=== PATIENT | male | born 1965 | race Caucasian/White ===

== ENCOUNTER 2019-09-26 18:42 | Emergency (ER) | payer OTHER, SELFPAY ==
[2019-09-26] VITALS (10 sets, daily range): BP systolic 112–176; BP diastolic 73–101; PULSE 77–97; RESP 18–22; TEMP 36.4–37.3; O2SAT 95–100
--- NOTE | ~2019-09-26 | XR_ITS ---
EXAMINATION: XR ankle LT 2V DATE: 09/26/2019 21:40 INDICATION: Left ankle fracture post reduction TECHNIQUE: Two views of the left ankle were obtained. COMPARISON: 1939 hours FINDINGS: There has been interval splinting and partial reduction of the previously described ankle f racture dislocation. The talus remains laterally subluxed with respect to the tibial plafond and appr oximately 8 mm. The largest distal fibular fracture fragment also remains laterally displaced relativ e to the proximal fibula by approximately 8 mm. The lateral malleolus is return to anatomic position. IMPRESSION: 1. Splinting and partial reduction of the previously described ankle fracture dislocation. Reviewed, dictated and finalized at location A. IMPRESSION: 1. Splinting and partial reduction of the previously described ankle fracture d islocation.
--- NOTE | ~2019-09-26 | XR_ITS ---
EXAMINATION: XR ankle LT min 3V DATE: 09/26/2019 19:45 INDICATION: Left ankle pain after fall, initial encounter TECHNIQUE: Three views of the left ankle were obtained. COMPARISON: None. FINDINGS: There is an acute, traumatic, closed, transverse fracture of the lateral malleolus. The fra cture fragment has completely avulsed, is rotated 90 degrees counterclockwise, and has migrated into position caudal to the distal tibia where the talus previously resided. There is an acute, traumatic, closed, comminuted fracture of the distal fibula above the level of the tibial plafond. The distal f ibular fracture fragment remains attached to the talus in anatomic position. The talus is laterally d islocated and proximally migrated with respect to the tibial plafond. Ankle soft tissue swelling is p resent. There is a plantar calcaneal enthesophyte. IMPRESSION: 1. Complex fracture dislocation of the distal tibia and fibula as described above. Reviewed, dictated and finalized at location A. IMPRESSION: 1. Complex fracture dislocation of the distal tibia and fibula as described abo ve.
--- NOTE | ~2019-09-26 | CT_ITS ---
EXAMINATION: CT cervical spine wo con DATE: 09/26/2019 19:36 INDICATION: Head injury TECHNIQUE: Computed tomography (CT) of the cervical spine was performed without intravenous contrast. The dose-length product (DLP) was 482.09 mGy-cm. Automated exposure control and iterative reconstruc tion technique were employed. COMPARISON: MRI, 06/28/2015 FINDINGS: There are 2 mm of stable retrolisthesis of C3 on C4. There are 2 mm of retrolisthesis of C5 on C6. There is moderate loss of intervertebral disc space height at C3-4, C5-6, and C6-7. The odont oid is intact. The prevertebral soft tissues are normal. The vertebral body heights are maintained. T here is moderate multilevel facet and uncovertebral joint osteoarthritis. There are moderate posterio r disc bulges at C5-6 and C6-7. IMPRESSION: 1. Severe cervical spondylosis without acute findings or significant interval change. Reviewed, dictated and finalized at location A. IMPRESSION: 1. Severe cervical spondylosis without acute findings or significant interval c enmanuel.
--- NOTE | ~2019-09-26 | CT_ITS ---
EXAMINATION: CT brain wo con INDICATION: Head injury COMPARISON: None TECHNIQUE: Standard unenhanced head CT. The dose-length product (DLP) was 681.00 mGy-cm. The mA was a djusted according to patient size. Iterative reconstruction technique was employed. FINDINGS: There is no acute intraparenchymal hemorrhage. No evidence of mass lesion. No evidence of a cute infarction. There is mild periventricular and subcortical hypodensity probably related to small vessel ischemic disease. There is mild prominence of the sulci and ventricles related to cerebral atr ophy. Intracranial calcified cerebral atherosclerosis is noted. There are no extra-axial collections. There is no mass effect or midline shift. The orbits and soft tissues are unremarkable. The visuali zed sinuses and mastoid air cells are well aerated. IMPRESSION: 1. No acute intracranial abnormality. 2. Age related findings. Reviewed, dictated and finalized at location A.
--- NOTE | 2019-09-26 18:58 | PC.NURSE ---
Patient yelling at this time states, get this damn thing off me. C collar removed advised or risks continue to refuse MD catrina notified.
[2019-09-26 20:33] LABS: Ethanol 245 mg/dL (<10)
[2019-09-26 20:34] LABS: Blood Urea Nitrogen 7 mg/dL (9-20); Calcium 8.6 mg/dL (8.4-10.2); Carbon Dioxide 21 mmol/L (22-30); Chloride 96 mmol/L (98-107); Estimated CRCL calculation 155 ml/min; Estimated Glomerular Filt Rate > 60; Glucose 100 mg/dL (75-110); Potassium 3.6 mmol/L (3.4-5.0); Sodium 129 mmol/L (137-145)
[2019-09-26 20:36] LABS: Basophils Absolute Auto 0.1 K/mm3 (0.0-0.1); Basophils Percent Auto 0.5 % (0.2-1.2); Eosinophils Absolute Auto 0.6 K/mm3 (0-0.3); Eosinophils Percent Auto 3.7 % (0-4.4); Hematocrit 46.3 % (42.0-52.0); Hemoglobin 15.8 g/dL (14.0-18.0); Immature Granulocyte Absolute 0.25 K/mm3 (0.00-0.031); Immature Granulocyte Percent A 1.5 % (0-0.5); Lymphocytes Absolute Auto 6.67 K/mm3 (0.9-3.2); Lymphocytes Percent Auto 40.4 % (18.3-44.2); Mean Corpuscular HGB Conc 34.1 g/dl (32-36); Mean Corpuscular Hemoglobin 32.8 pg (26-34); Mean Corpuscular Volume 96.3 fl (80-100); Mean Platelet Volume 9.1 fl (7.4-10.4); Monocytes Absolute Auto 1.3 K/mm3 (0.1-0.6); Monocytes Percent Auto 7.8 % (2.6-8.5); Neutrophils Absolute Auto 7.6 K/mm3 (1.3-6.7); Neutrophils Percent Auto 46.1 % (45.5-73.1); Platelet Count Result 292 k/mm3 (150-375); Red Blood Count 4.81 M/mm3 (4.6-6.20); White Blood Count 16.5 K/mm3 (4.5-10.0)
--- NOTE | 2019-09-26 20:44 | ED.FALL ---
HPI - Fall General Chief Complaint: Fall Stated Complaint: fall w/ L ankle pain Time Seen by Provider: 09/26/19 19:27 Source: patient and family Limitations: altered mental status History of Present Illness HPI Narrative: 54-year-old male Heavy drinker says that she spoke to him on the phone at about 615 and returned home at 630 and found him at the bottom of the stairs with a broken ankle Patient tells me he made it almost all the way down the stairs before he fell Denies loss of consciousness and denies any injury other than to his ankle He has not been sick he did not have any chest pain he does not recall any dizziness before this episode he had probably drank 2 sixpacks of beer so far today complaint: fall Onset (ago): hour(s) Fall from: down stairs (#) (about 5 feet) Fall witnessed: no Place fall occurred: home Loss of consciousness: none Prolonged down time: no Symptoms prior to fall: none Context: tripped/slipped and alcohol use Location of injury: other (LE) Location of injury - extremities: Left: lower leg and ankle Severity: severe Associated symptoms (after fall): unable to walk Related Data Home Medications Medication Instructions Recorded Confirmed omeprazole 20 mg tablet,delayed 20 mg PO BID 04/30/19 release Allergies Allergy/AdvReac Type Severity Reaction Status Date / Time No Known Allergies Allergy Verified 09/26/19 18:50 Review of Systems Review of Systems: All systems reviewed & are unremarkable except as noted in HPI and below Constitutional: Constitutional: Denies chills and Denies fever(s) Eyes: Eyes: Denies change in vision Cardiovascular: Cardiovascular: Denies chest pain and Denies rapid heart rate Respiratory: Respiratory: Denies cough and Denies dyspnea Gastrointestinal: Gastrointestinal: Denies nausea and Denies vomiting Musculoskeletal: Musculoskeletal: Reports arthralgias Neurologic: Denies syncope, Denies headache(s), Denies focal weakness and Denies numbness PMFSH Past Medical History Medical History Chronic alcoholism Depression ETOH abuse GERD (gastroesophageal reflux disease) HTN (hypertension) Surgical History Surgical History History of back surgery History of surgery on arm left bicep muscle repair Hx of cholecystectomy Family History Family History Mother Hypertension Father Family history of coronary artery disease Other Family history of cardiovascular disease Social History Social History Smoking packs per day: 2 Smoking cigarettes per day: 40.0 Smoking status: Heavy tobacco smoker Alcohol intake: current Gender identity (if verbalized by the patient): Male Exam Const: General: alert Orientation/consciousness: patient oriented x3 Other: + ETOH HENMT: Head: normal to inspection and no contusions Mouth: Yes moist mucous membranes Course Course Emergency Course: d/w r mak who will tx d/w dr hernandez who will admit, given etoh and risk for etoh w/d or additional falls d/w pt who wants to sign ama while intoxicated he clearly understands the risks as were explained to him in the presence of his including risks of fall risk and further injury to the injured leg risk of sustaining a new injury risk of having pain risk of alcohol withdrawal and risk of not being able to secure prompt follow-up for definitive treatment Vital Signs Vital signs: Vital Signs Temperature 36.4 C 09/26/19 18:46 Pulse Rate 77 09/26/19 18:46 Respiratory Rate 18 09/26/19 18:46 Blood Pressure 143/77 H 09/26/19 18:46 Pulse Oximetry 95 09/26/19 18:46 Temperature 37.1 C 09/26/19 21:30 Pulse Rate 87 09/26/19 21:30 Respiratory Rate 20 09/26/19 21:30 Blood Pressure 159/101 H
[2019-09-26] MEDS: LACTATED RINGERS 1,000 ML 999 ML IV CONT (21:00)
--- NOTE | 2019-09-26 21:12 | PC.NURSE ---
MD Kelly aware of high risk score.
--- NOTE | 2019-09-26 22:00 | PC.NURSE ---
Pt. now arguing with and demanded bed rails to be taken down so he can get up and go home. went over AMA Papers with Pt. and explained in detail all the risk.
--- NOTE | 2019-10-02 11:12 | PC.NURSE ---
Fentanyl given at 2102 on 09/26/2019 administered by ROSALBA Gandara with present. Late entry entered by ROSALBA Orr.
== END 2019-09-26 22:20 | disposition left against medical advice (07) ==
PROVIDERS: Emergency Provider Emergency Medicine; PCP Internal Medicine
DX: S82.62XA Displaced fracture of lateral malleolus of left fibula, initial encounter for closed fracture (principal); S82.392A Other fracture of lower end of left tibia, initial encounter for closed fracture; F10.229 Alcohol dependence with intoxication, unspecified; Y90.8 Blood alcohol level of 240 mg/100 ml or more; W10.9XXA Fall (on) (from) unspecified stairs and steps, initial encounter; F17.210 Nicotine dependence, cigarettes, uncomplicated; M47.812 Spondylosis without myelopathy or radiculopathy, cervical region; I10 Essential (primary) hypertension; K21.9 Gastro-esophageal reflux disease without esophagitis
CPT/HCPCS: 27788; 36415; 70450; 72125; 73600; 73610; 80048; 80307; 85025; 99285; J7120; L0140

== ENCOUNTER 2019-10-02 00:50 | Day surgery (SDC) | payer OTHER, SELFPAY ==
[2019-10-01 14:04] VITALS: BMI 27.1
[2019-10-02] VITALS (7 sets, daily range): BP systolic 170–186; BP diastolic 81–98; PULSE 78–100; RESP 14–20; TEMP 36.3–36.5; O2SAT 92–100
--- NOTE | ~2019-10-02 | XR_ITS ---
XR surgery orthopedic 10/02/2019 11:31 Indication: Intraoperative fixation of left ankle Procedure: 7 fluoroscopic images left ankle. 60 seconds of fluoroscopy. Comparison: 09/26/2019 Findings: Status post intraoperative fixation of the distal fibula with sideplate and screws which is in anatomic alignment post reduction. Status post internal fixation of the medial malleolus with 3 l ag screws which is also in anatomic alignment post reduction. There is a minimally displaced posterio r malleolar fracture. Impression: 1: Anatomic alignment of medial and lateral malleolar fracture status post internal fixation. Reviewed, dictated and finalized at location A. Impression: 1: Anatomic alignment of medial and lateral malleolar fracture status post inte rnal fixation.
--- NOTE | 2019-10-02 05:59 | ECG_ITS ---
Measurements Intervals [place] Rate: 80 P: 34 [place]: 174 QRS: -16 QRSD: 98 T: 32 QT: 385 QTc: 445 Interpretive Statements SINUS RHYTHM HIGH LATERAL INFARCT, AGE INDETERMINATE ABNORMAL ECG Electronically Signed On 10-02-2019 8:12:11 CDT by Marv Lee D.O.
[2019-10-02] MEDS: LACTATED RINGERS 1,000 ML 30 ML IV CONT ×2 (07:55→12:17)
--- NOTE | 2019-10-02 08:16 | SUR.PREOP ---
SURGICAL SCRUB TO BE DOEN IN OR, SPLINT TO REMAIN IN PLACE.
--- NOTE | 2019-10-02 08:30 | WPDANESEPPF ---
Anes - Initial Pre Proc Eval Procedure: Operation Date: 10/02/19 09:30 Proposed Procedures p Open Reduction Internal Fixation Left Ankle - Gino Urrutia MD Date/Time: 10/02/19 08:30 Surgeon: Gino Urrutia MD Pre Op Diagnosis: Left Trimalleolar Ankle Fracture Patient Data Age: 54 Gender: M Height: 6 ft Weight: 95 kg Last Vital Signs Temp 36.5 C 10/02/19 07:35 Pulse 99 10/02/19 07:35 Resp 18 10/02/19 07:35 BP 170/86 H 10/02/19 07:35 Pulse Ox 99 10/02/19 07:35 Allergies Allergy/AdvReac Type Severity Reaction Status Date / Time No Known Allergies Allergy Verified 10/02/19 07:42 Home Medications Medication Instructions Recorded Confirmed Type omeprazole 20 mg tablet,delayed 20 mg PO BID 04/30/19 10/02/19 History release oxycodone 5 - 10 mg PO Q6H PRN 10/01/19 10/02/19 History Patient hx anesthesia problems: none Family hx anesthesia problems: none PMFSH Past Medical History Medical History Chronic alcoholism Depression ETOH abuse GERD (gastroesophageal reflux disease) HTN (hypertension) Surgical History Surgical History History of back surgery History of surgery on arm left bicep muscle repair Hx of cholecystectomy Family History Family History Mother Hypertension Father Family history of coronary artery disease Other Family history of cardiovascular disease Social History Social History Smoking packs per day: 2 Smoking cigarettes per day: 40.0 Smoking status: Heavy tobacco smoker Alcohol intake: current Gender identity (if verbalized by the patient): Male Anes - Eval Final PreProcedure Day of Procedure 10/02/19 08:30 Patient weight: overweight Heart: regular rate and rhythm Lungs: decreased breath sounds Airway: Mallampati scale class II Neurological: alert and oriented Last oral intake: >/= 8 hours ASA classification: III Emergent: no Anesthetic plan: proceed Anesthesia type and monitoring: general LMA and standard monitoring Informed Consent: The patient's anesthetic plan and its attendant risks and benefits were discussed with the patient/family/POA. Questions were solicited and answers provided to the satisfaction of the patient/family/POA.
--- NOTE | 2019-10-02 09:28 | WPDHPUPDATE1 ---
History and Physical Update Update Date/Time: 10/02/19 09:28 History and Physical has been reviewed, including an updated exam of the patient. There are NO changes in the patient's condition. Risks, benefits, and alternatives have been discussed and questions answered. Patient agrees to proceed with procedure.
[2019-10-02] MEDS: ceFAZolin 2 GM/D5W 50 ML 2 GM/50 ML BAG IVPB (09:35)
--- NOTE | 2019-10-02 15:53 | PM.PROC ---
Procedure Note - Detailed Date of procedure: 10/02/19 Pre-op diagnosis: Left Trimalleolar Ankle Fracture Post-op diagnosis: same Procedure performed: ORIF trimalleolar ankle fracture. Description of procedure: Highly unstable fracture dislocation. Internal fixation placed at the medial malleolus and lateral malleolus. The posterior malleolus fragment was less than 20%, and reduced nearly anatomically with indirect reduction. Medial soft tissue did have a small fracture blister which appeared to be healing and was quite soft. Despite the significant stripping of the soft tissues, the skin reapproximated very well without undue tension. Implants: ABA English 1/3 tubular plate. 4.0 mm partially threaded cannulated screws, 50mm x 2, 48mm x 1. Anesthesia: GETA Surgeon: Gino Urrutia MD Estimated blood loss (mL): 20 Drains: No Complications: None Disposition: same day Findings: A general anesthetic was administered. The limb was prepped and draped in the usual sterile fashion with a well-padded tourniquet high on the thigh. A bump was placed under the hip. The limb was exsanguinated and the tourniquet inflated to 300 millimeters of mercury during the procedure. A longitudinal incision was created at the distal fibula. Careful dissection was carried down to bone. Perineal nerve branches were protected. The fracture was carefully exposed. Callus and debris was irrigated from the wound. The fracture was highly unstable. Soft tissue stripping went around the anterior talus. The fracture was fairly distal and the fibula itself proximally was stable with the tibial fibular ligaments. The fracture was brought out to length. Reduction was accomplished with the reduction forceps. The fixation plate was contoured. Plate fit very nicely posteriorly. This also was position to prevent the tendency towards posterior dislocation of the ankle. An anterior to posterior lag screw was placed as well as a leg screw through the plate from posterior to anterior. Fixation was performed with a combination of cortical and cancellous screws. The medial malleolus was exposed with a longitudinal incision. The fracture was cleared of debris and irrigated. Significant stripping and this fragment was quite large. It actually extended onto the articular surface. There was some chondromalacia on the talus. Anatomic reduction was obtained with the reduction tool. Biplanar fluoroscopy was used to assess the fracture reduction and guide placement of the K-wire. The fracture interdigitated very well and had excellent inherent stability. Two K-wires were placed parallel across the fracture site. The screw lengths were measured and drilled distally only. The long, partially threaded screws were placed, and the K-wires removed. One of this K-wires screws was fairly anterior and more proximal. There was enough room for 3rd cannulated screw more posteriorly in the malleolus. The 3 screws provided excellent stability and compression anatomically. Bone quality was very good. Fluoroscopy was used throughout the procedure to confirm anatomic reduction and appropriate placement of the implants. The tourniquet was released. Meticulous hemostasis was obtained. Wound was closed in layers with 2-0 Vicryl suture 3-0 Monocryl suture 3-0 nylon suture. A sterile splint with padding was applied. The patient was extubated and brought to the recovery room in stable condition. There were no complications. The patient was advised to use extreme caution with the leg due to the significant nature of the soft tissue and bony injury. He was advised of the risks of wound healing complications which could result in more surgery and potentially devastating complications. He will remain nonweightbearing for 2 weeks. Return for suture removal at that time and placement of a nonweightbearing cast.
== END 2019-10-02 13:50 | disposition home or self-care (01) ==
PROVIDERS: PCP Internal Medicine; Visit Provider Orthopaedic Surgery
PROC: (CPT 27822; principal; 2019-10-02 09:30)
DX: S82.852A Displaced trimalleolar fracture of left lower leg, initial encounter for closed fracture (principal); W10.9XXA Fall (on) (from) unspecified stairs and steps, initial encounter; I10 Essential (primary) hypertension; K21.9 Gastro-esophageal reflux disease without esophagitis; F32.9 Major depressive disorder, single episode, unspecified; Z72.0 Tobacco use; F10.20 Alcohol dependence, uncomplicated
CPT/HCPCS: 27822; 93005; A9270; C1713; C1769; J0690; J1170; J2250; J2405; J2704; J3010; J7120

== ENCOUNTER 2019-11-27 07:34 | Outpatient (RCR) | payer OTHER, SELFPAY ==
[2019-10-17 10:34] VITALS: BMI 24.5
== END 2020-01-05 07:37 | disposition home or self-care (01) ==
LOC: ANHWOC 07:34
PROVIDERS: PCP Internal Medicine; Visit Provider Orthopaedic Surgery
DX: S90.522D Blister (nonthermal), left ankle, subsequent encounter (principal)
CPT/HCPCS: 99212; G0463

== ENCOUNTER 2020-01-02 00:47 | Outpatient (CLI) | payer OTHER, SELFPAY ==
[2020-01-02 20:43] LABS: SARS-CoV-2 RNA PCR Negative
== END 2020-01-02 00:48 | disposition home or self-care (01) ==
LOC: ANHCOVIDDT 00:48
PROVIDERS: PCP Internal Medicine; Visit Provider Internal Medicine Gastroenterology
DX: Z01.812 Encounter for preprocedural laboratory examination (principal); Z11.59 Encounter for screening for other viral diseases
CPT/HCPCS: 87635; C9803; U0003

== ENCOUNTER 2020-01-05 00:53 | Day surgery (SDC) | payer OTHER, SELFPAY ==
--- NOTE | 2020-01-05 08:18 | WPDANESEPPF ---
Anes - Initial Pre Proc Eval Procedure: Operation Date: 01/05/20 09:00 Proposed Procedures p Screening Colonoscopy - Cole Curiel MD Date/Time: 01/05/20 08:18 Surgeon: Cole Curiel MD Pre Op Diagnosis: Neoplasm Screening Patient Data Age: 54 Gender: M Height: 1.83 m Weight: 100.45 kg Allergies Allergy/AdvReac Type Severity Reaction Status Date / Time No Known Allergies Allergy Verified 01/05/20 08:17 Home Medications Medication Instructions Recorded Confirmed Type omeprazole 20 mg tablet,delayed 20 mg PO BID 04/30/19 12/31/19 History release fluticasone propionate 50 2 spray NASAL DAILY #18.2 ml 12/30/19 12/31/19 Rx mcg/actuation nasal spray,suspension Patient hx anesthesia problems: none Family hx anesthesia problems: none PMFSH Past Medical History Medical History (Updated 12/30/19 @ 11:33 by Mariana Sousa, [employer]) Broken ankle Left 10/2019 Chronic alcoholism Depression ETOH abuse GERD (gastroesophageal reflux disease) HTN (hypertension) Surgical History Surgical History History of back surgery History of surgery on arm left bicep muscle repair Hx of cholecystectomy Social History Social History (Updated 12/30/19 @ 10:39 by Dorota Arnold [facility]) Smoking packs per day: 2 Smoking cigarettes per day: 40.0 Smoking status: Heavy tobacco smoker Alcohol intake: current Substance use: never Gender identity (if verbalized by the patient): Male Anes - Eval Final PreProcedure Day of Procedure 01/05/20 08:18 Patient weight: obese Heart: regular rate and rhythm Lungs: clear to auscultation and normal air movement Airway: Mallampati scale class III Neurological: alert and oriented Last oral intake: >/= 8 hours ASA classification: III Emergent: no Anesthetic plan: proceed Anesthesia type and monitoring: general GIVS and standard monitoring Informed Consent: The patient's anesthetic plan and its attendant risks and benefits were discussed with the patient/family/POA. Questions were solicited and answers provided to the satisfaction of the patient/family/POA.
[2020-01-05 08:19] VITALS: BP 165/100; PULSE 97; RESP 18; TEMP 36.9; O2SAT 97
[2020-01-05] MEDS: LACTATED RINGERS 1,000 ML 150 ML IV CONT (08:30)
--- NOTE | 2020-01-05 08:37 | PM.HPGS ---
History of Present Illness History of Present Illness Consent: Risks, benefits, and alternatives have been discussed and questions answered. Patient agrees to proceed with procedure. Chief complaint: Neoplasm Screening Narrative: Eduardo May is a 54 year old W male referred for his 1st screening colonoscopy. Patient is asymptomatic and there is no known family history of colorectal cancer. [facility] Past Medical History Medical History (Updated 01/05/20 @ 08:38 by Cole Curiel MD) Broken ankle Left 10/2019 Chronic alcoholism COPD (chronic obstructive pulmonary disease) Depression ETOH abuse GERD (gastroesophageal reflux disease) HTN (hypertension) Surgical History Surgical History History of back surgery History of surgery on arm left bicep muscle repair Hx of cholecystectomy Family History Family History Mother Hypertension Father Family history of coronary artery disease Other Family history of cardiovascular disease Social History Social History Smoking packs per day: 2 Smoking cigarettes per day: 40.0 Smoking status: Heavy tobacco smoker Alcohol intake: current Substance use: never Gender identity (if verbalized by the patient): Male Meds Home Medications and Allergies Home Medications Medication Instructions Recorded Confirmed Type omeprazole 20 mg tablet,delayed 20 mg PO BID 04/30/19 01/05/20 History release fluticasone propionate 50 2 spray NASAL DAILY #18.2 ml 12/30/19 01/05/20 Rx mcg/actuation nasal spray,suspension Allergies Allergy/AdvReac Type Severity Reaction Status Date / Time No Known Allergies Allergy Verified 01/05/20 08:17 Vital Signs Vital Signs - 24 hr 01/05/20 08:19 Temperature 36.9 C Pulse Rate 97 Respiratory Rate 18 Blood Pressure 165/100 H Pulse Oximetry 97 Exam Const: Orientation/consciousness: patient oriented x3 Resp: Auscultation: clear to auscultation bilaterally Cardio: Rate: regular rate Rhythm: regular rhythm Heart sounds: no murmurs GI: GI Palp: Yes Soft to palpation, No Tenderness to palpation present (GI), Yes No hepatosplenomegaly present and No Palpable mass present Auscultation: normal bowel sounds Neuro: General: patient oriented x3 and no focal motor deficits Extrem: General: no pedal edema Assessment and Plan Additional Plan screening colonoscopy in average risk patient
[2020-01-05] MEDS: SIMETHICONE ORAL SUSPENSION 20 MG/0.3 ML 30 ML BOTTLE 0.6 ML IRRIGATION (10:02)
[2020-01-05 10:30] VITALS: BP 107/54; PULSE 92; RESP 23; O2SAT 98
[2020-01-05 10:40] VITALS: BP 151/77; PULSE 76; RESP 22; O2SAT 97
[2020-01-05 10:50] VITALS: BP 137/69; PULSE 74; RESP 21; O2SAT 98
== END 2020-01-05 11:11 | disposition home or self-care (01) ==
PROVIDERS: PCP Internal Medicine; Visit Provider Internal Medicine Gastroenterology
PROC: 0DJD8ZZ Inspection of Lower Intestinal Tract, Via Natural or Artificial Opening Endoscopic (ICD-10-PCS; CPT 45378; principal; 2020-01-05 09:00)
DX: Z12.11 Encounter for screening for malignant neoplasm of colon (principal); K63.5 Polyp of colon; K57.30 Diverticulosis of large intestine without perforation or abscess without bleeding; K64.8 Other hemorrhoids; I10 Essential (primary) hypertension; K21.9 Gastro-esophageal reflux disease without esophagitis; J44.9 Chronic obstructive pulmonary disease, unspecified; E66.9 Obesity, unspecified; Z68.29 Body mass index [BMI] 29.0-29.9, adult; F17.210 Nicotine dependence, cigarettes, uncomplicated; Z79.51 Long term (current) use of inhaled steroids; Z79.899 Other long term (current) drug therapy
CPT/HCPCS: 45380; 87635; 88305; C9803; J2704; J7120; U0003

== ENCOUNTER 2020-06-28 11:12 | Outpatient (CLI) | payer OTHER, SELFPAY ==
--- NOTE | ~2020-06-28 | CT_ITS ---
EXAMINATION: CT soft tissue neck chest w DATE: 06/28/2020 12:11 INDICATION: Paralysis of vocal cords and larynx, unilateral. TECHNIQUE: Computed tomography (CT) of the neck and chest was performed with 75 mL Omnipaque-350 intr avenous contrast. Automated exposure control and iterative reconstruction technique were employed. Th e dose-length product was 788.44 mGy-cm. COMPARISON: None FINDINGS: CT NECK: There are no pathologically enlarged lymph nodes. There is plaque in the proximal internal c arotid arteries with less than 50% stenosis relative to normal distal artery lumen diameters. The lar ynx is unremarkable. There is severe cervical spondylosis. CT CHEST: There is mild emphysema. There is mild dependent atelectasis. There is a 3 mm nodule in rig ht lower lobe. There is a 5 mm nodule in right middle lobe. There is a 5 mm nodule in right upper lob e. No pleural effusion. The heart size is normal. There are coronary artery calcifications. No perica rdial effusion. There are no pathologically enlarged lymph nodes. There is mild thoracic spondylosis. There is mild chronic anterior wedging of multiple vertebral bodies. IMPRESSION: 1. No etiology for vocal cord paralysis. 2. Small pulmonary nodules, likely benign. 3. Mild emphysema. Reviewed, dictated and finalized at location A. SMAN/OWNER
[2020-06-28 11:47] LABS: Estimated Glomerular Filt Rate > 60
== END 2020-06-28 11:13 ==
PROVIDERS: Visit Provider Otolaryngology
DX: J38.01 Paralysis of vocal cords and larynx, unilateral (principal); R91.8 Other nonspecific abnormal finding of lung field; J43.9 Emphysema, unspecified
CPT/HCPCS: 70491; 71260; Q9967

== ENCOUNTER 2021-03-23 11:05 | Emergency (ER) | payer OTHER, SELFPAY ==
[2021-03-23] VITALS (7 sets, daily range): BP systolic 128–152; BP diastolic 60–78; PULSE 75–102; RESP 17–19; TEMP 36.4; O2SAT 94–100
--- NOTE | ~2021-03-23 | CT_ITS ---
EXAMINATION: CT brain wo con DATE: 03/23/2021 12:08 INDICATION: Altered mental status TECHNIQUE: Computed tomography (CT) of the head was performed without intravenous contrast. The dose- length product was 605.33 mGy-cm. Automated exposure control and iterative reconstruction technique w ere employed. COMPARISON: CT dated 09/26/2019 FINDINGS: Mild generalized atrophy. There are scattered mild periventricular and subcortical white ma tter changes, most likely related to small vessel ischemic disease (microangiopathy). There are age-i ndeterminate bilateral occipital lobe infarctions. No ventriculomegaly or midline shift. Basilar cist erns are partly patent. There is intracranial atherosclerosis. Mild mucosal thickening of the right m axillary sinus and sphenoid sinus. Mastoids are pneumatized. IMPRESSION: 1. Age-indeterminate bilateral occipital lobe infarctions. Consider correlation with MRI. No signific ant mass effect or intracranial hemorrhage. 2: Chronic age-related findings. Reviewed, dictated and finalized at location B. IMPRESSION: 1. Age-indeterminate bilateral occipital lobe infarctions. Consider correlation with MRI. No significant mass effect or intracranial hemorrhage. 2: Chronic age-related findings.
--- NOTE | ~2021-03-23 | XR_ITS ---
EXAMINATION: XR chest 2V DATE: 03/23/2021 12:05 INDICATION: Altered mental status. TECHNIQUE: Frontal and lateral views of the chest were obtained. COMPARISON: Chest 2 views 11/21/2010 FINDINGS: There are airspace opacities throughout right middle lobe, consistent with pneumonia. No pl eural effusion or pneumothorax. The heart size is normal. Surgical clips in the right upper quadrant are likely from cholecystectomy. IMPRESSION: 1. Right middle lobe pneumonia. Reviewed, dictated and finalized at location A.
--- NOTE | 2021-03-23 11:46 | ECG_ITS ---
Measurements Intervals [place] Rate: 95 P: 50 [place]: 158 QRS: -6 QRSD: 89 T: 40 QT: 392 QTc: 493 Interpretive Statements SINUS RHYTHM VENTRICULAR PREMATURE COMPLEX POSSIBLE LEFT ATRIAL ENLARGEMENT DELAYED PRECORDIAL R/S TRANSITION BASELINE ARTIFACT- I, II, III, AVR, AVL, AVF BORDERLINE ECG Electronically Signed On 03-23-2021 19:48:53 CDT by Marv Lee D.O.
--- NOTE | 2021-03-23 11:48 | ED.GENADULT ---
HPI - General Adult General Chief complaint: Unspecified Stated complaint: EMOTIONAL DISTRESS, NO SI/HI Time Seen by Provider: 03/23/21 11:39 Source: patient, EMS and RN notes reviewed Mode of arrival: EMS Limitations: no limitations History of Present Illness HPI narrative: This is a 56 year old male with history of alcohol abuse, HTN, depression who presents from home for evaluation of depression and altered mental status. Patient's called 911 today and police escorted patient to ER today. Police filled out petition stating patient's reports patient told her that he did not want to live anymore. She also reported to them patient is not acting like himself. Patient defecated and urinated on himself and he was not aware of it. Patient denies suicidal or homicidal thoughts. He denies stating anything about wanting to harm himself to his . He does admit drinking alcohol, and he drank 6 pack of beer today. He denies chest pain, shortness of breath, abdominal pain, nausea or vomiting. Related Data Home Medications Medication Instructions Recorded Confirmed omeprazole 20 mg tablet,delayed 20 mg PO BID 04/30/19 04/21/20 release Allergies Allergy/AdvReac Type Severity Reaction Status Date / Time No Known Allergies Allergy Verified 03/23/21 11:24 Review of Systems Review of Systems: All systems reviewed & are unremarkable except as noted in HPI and below PMFSH Past Medical History Medical History Broken ankle Left 10/2019 Chronic alcoholism COPD (chronic obstructive pulmonary disease) Depression ETOH abuse GERD (gastroesophageal reflux disease) HTN (hypertension) Surgical History Surgical History History of back surgery History of surgery on arm left bicep muscle repair Hx of cholecystectomy Family History Family History Mother Hypertension Father Family history of coronary artery disease Other Family history of cardiovascular disease Social History Social History Smoking packs per day: 2 Smoking cigarettes per day: 40.0 Smoking status: Heavy tobacco smoker Alcohol intake: current Alcohol use details: 6 beers daily Substance use: never Gender identity (if verbalized by the patient): Male Exam Const: General: cooperative, alert, awake, anxious and poor hygiene Nutritional Appearance: average body habitus Orientation/consciousness: patient oriented x3 HENMT: Head: normocephalic and atraumatic Face and sinus: face symmetric Mouth: Yes dry mucous membranes Eyes: General: appearance normal, both eyes and all related structures Pupils: Equal, round and reactive pupils present Resp: Effort & Inspection: normal respiratory effort and able to speak in complete sentences Auscultation: clear to auscultation bilaterally GI: Inspection: normal to inspection and non-distended GI Palp: Yes Soft to palpation and No Tenderness to palpation present (GI) Auscultation: normal bowel sounds Skin: General skin exam: mottling Neuro: General: patient oriented x3 and moves all extremities Course Consultations Consultation #1: I discussed case with Amelia Sol who accepts patient to [facility] for electrolyte abnormalities. Date: 03/23/21 Time: 14:30 Vital Signs Vital signs: Vital Signs Temperature 97.6 F 03/23/21 11:24 Pulse Rate 87 03/23/21 11:24 Respiratory Rate 18 03/23/21 11:24 Blood Pressure 131/60 03/23/21 11:24 Pulse Oximetry 94 03/23/21 11:24 Temperature 97.6 F 03/23/21 11:24 Pulse Rate 87 03/23/21 11:24 Respiratory Rate 18 03/23/21 11:24 Blood Pressure 131/60 03/23/21 11:24 Pulse Oximetry 94 03/23/21 11:24 Medical Decision Making Vital Signs Vital Signs: Vital Signs Temperature 97.6
--- NOTE | 2021-03-23 12:14 | PC.NURSE ---
Pt refused IV. CM Rodriguez notified of this.
[2021-03-23 12:16] LABS: Basophils Absolute Auto 0.1 K/mm3 (0.0-0.1); Basophils Percent Auto 0.4 % (0.2-1.2); Eosinophils Absolute Auto 0.1 K/mm3 (0-0.3); Eosinophils Percent Auto 0.5 % (0-4.4); Hematocrit 43.4 % (42.0-52.0); Hemoglobin 15.2 g/dL (14.0-18.0); Immature Granulocyte Absolute 0.65 K/mm3 (0.00-0.031); Immature Granulocyte Percent A 3.4 % (0-0.5); Lymphocytes Percent Auto 5.2 % (18.3-44.2); Mean Corpuscular Hemoglobin 32.5 pg (26-34); Mean Corpuscular Volume 92.7 fl (80-100); Mean Platelet Volume 9.5 fl (7.4-10.4); Monocytes Absolute Auto 1.4 K/mm3 (0.1-0.6); Monocytes Percent Auto 7.3 % (2.6-8.5); Neutrophils Absolute Auto 16.1 K/mm3 (1.3-6.7); Neutrophils Percent Auto 83.2 % (45.5-73.1); Platelet Count Result 159 k/mm3 (150-375); Red Blood Count 4.68 M/mm3 (4.6-6.20); Red Cell Distribution Width 12.2 % (11.5-14.5); White Blood Count 19.4 K/mm3 (4.5-10.0)
[2021-03-23 12:21] LABS: Acetaminophen < 10 ug/mL (10-30); Ammonia < 9 umol/L (9-30); Ethanol < 10 mg/dL (<10); Salicylate < 1.0 mg/dL (2-20)
[2021-03-23 12:23] LABS: INR 1.2; Prothrombin Time 15.2 Seconds (11.1-14.7)
[2021-03-23 12:25] LABS: Alanine Aminotransferase 22 U/L (4-50); Albumin Level 3.4 g/dL (3.5-5.1); Alkaline Phosphatase 78 U/L (38-126); Anion Gap 16 mmol/L (8-16); Aspartate Amino Transferase 36 U/L (17-59); Bilirubin,Total 0.8 mg/dL (0.2-1.3); Blood Urea Nitrogen 21 mg/dL (9-20); Calcium 5.9 mg/dL (8.4-10.2); Carbon Dioxide 20 mmol/L (22-30); Chloride 100 mmol/L (98-107); Estimated Glomerular Filt Rate > 60; Glucose 124 mg/dL (65-110); Potassium 2.8 mmol/L (3.4-5.0); Sodium 136 mmol/L (137-145)
[2021-03-23 13:37] LABS: Lactic Acid Reflex 1.6 mmol/L (0.7-2.1)
--- NOTE | 2021-03-23 14:25 | PC.NURSE ---
ib thiamine and folic acid given after patient initially refused
[2021-03-23 14:34] LABS: Add Urine Microscopic? YES; Appearance Urine Cloudy (Clear); Bilirubin Urine Negative (Negative); Blood Urine 1+ (Negative); Color Urine Amber (Yellow); Glucose Urine UA Negative (Negative); Ketones Urine Trace mg/dL (Negative); Leukocyte Esterase Ur Negative LEU/UL (Negative); Mucus Urine Rare /lpf; Nitrate Urine Negative (Negative); Protein Urine 1+ mg/dL (Negative); Specific Grav Ur 1.019 (1.001-1.035); Squamous Epithelial Cell Urine Rare /hpf (Few); WBC Urine 0-3 /hpf
[2021-03-23] MEDS: CALCIUM GLUCONATE 1,000 MG/10 ML VIAL 1000 MG IV PUSH (14:46)
[2021-03-23 14:58] LABS: Amphetamine Screen Urine Negative (Negative); Barbiturate Screen Urine Negative (Negative); Benzodiazepines Screen Urine Negative (Negative); Cannabinoid Screen Urine Negative (Negative); Cocaine Screen Urine Negative (Negative); Methadone Screen Urine Negative (Negative); Opiate Screen Urine Negative (Negative); Phencyclidine Screen Urine Negative (Negative)
--- NOTE | 2021-03-23 15:00 | WPDCN ---
Assessment and Plan Assessment and plan (1) Cerebrovascular accident: Code(s): I63.9 - Cerebral infarction, unspecified Status: Acute (2) Right middle lobe pneumonia: Code(s): J18.9 - Pneumonia, unspecified organism Status: Acute (3) Electrolyte abnormality: Code(s): E87.8 - Other disorders of electrolyte and fluid balance, not elsewhere classified Status: Acute (4) Alcohol abuse: Code(s): F10.10 - Alcohol abuse, uncomplicated Status: Acute (5) Tobacco dependence: Code(s): F17.200 - Nicotine dependence, unspecified, uncomplicated Status: Acute (6) Hypertension: Code(s): I10 - Essential (primary) hypertension Status: Acute Additional Plan Initially the patient was going to be admitted to the hospitalist service for further treatment of pneumonia and electrolyte abnormalities as well as evaluation of infarctions noted on brain CT. He received a dose of azithromycin and ceftriaxone in the emergency department for the pneumonia. Electrolytes were replaced including potassium, calcium, and magnesium. His blood pressures were stable. He had a flat mood and affect and was a bit irritable but he had a negative Reagan score and denied active suicidal thoughts, it seems more likely that the strange behaviors his reported were most likely due to his underlying infection, CVA, and electrolyte abnormalities. There were no overt signs of alcohol withdrawal at this time. Unfortunately the patient made the informed decision that he was unwilling to stay in the hospital and he was discharged to the emergency department. Supervising physician for this consultation is Dr. Ladan Geller. HPI Data of Consult Date/Time: 03/23/21 15:00 Primary Care Provider: Hector Gallagher, DO Consult Narrative Narrative: This is a 56-year-old male smoker with history of alcoholism, COPD, GERD, and hypertension who presented to the emergency department earlier today via EMS from home for evaluation of altered mental status. Initially EMS was called by the patient's , reporting that he had been depressed for the last several weeks and he has not been acting like himself. Apparently he had several episodes of incontinence and he was exhibiting mild confusion though she gave no specific examples. had told the police that the patient was suicidal and kept talking about wanting to end his life. The patient adamantly denied suicidal and homicidal thoughts on arrival to the ED and to other healthcare workers on multiple reassessments and his Reagan Suicide Severity Rating Scale was also negative. For evaluation of his altered mental status, he was sent for brain CT which revealed age-indeterminate bilateral occipital lobe infarctions. He was also noted to have several electrolyte abnormalities including hypokalemia, hypomagnesemia, and hypocalcemia. He received potassium, magnesium, and calcium replacement in the emergency department and he also received IV hydration. a chest x-ray demonstrated right middle lobe pneumonia and he was given a dose of azithromycin and ceftriaxone. Plans were made to admit the patient to the hospitalist service for further treatment and workup. I saw the patient in the emergency department at which time he indicated to me that he has been stressed out and depressed recently but he adamantly denied suicidal thoughts. He has not felt well for a couple of weeks without any significant symptoms aside from overall malaise, generalized weakness, and perhaps some mild confusion. His appetite has also been a bit diminished though he denies nausea and vomiting. He also denies diarrhea and dysuria. No vertigo, auditory visual changes, focal weakness, or paresthesias. He denied dysarthria and dysphagia. No chest pain, pleuritic pain, palpitations, or history of irregular heartbeat. After speaking with the patient and formulating a plan with him, he indicated to me that he did not want to stay in
[2021-03-23 15:15] LABS: Magnesium 0.7 mg/dL (1.6-2.3)
--- NOTE | 2021-03-23 18:15 | PC.NURSE ---
patient refusing to stay at this time. states he wants to leave and go home. Patients , Mega, contacted and she states she will pick him up at 9pm lissy
[2021-03-23] MEDS: MAGNESIUM SULFATE 3GM/D5W100ML 3 GM/100 ML BAG IVPB (18:51)
--- NOTE | 2021-03-23 19:32 | PC.NURSE ---
Assumed care of pt, discussed POC. Pt is alert and upright w/ IV medications infusing. Pt in soiled clothing, wet linen. Pt repositioned, cleaned, dry depends placed, linen changed. VSS.
--- NOTE | 2021-03-23 20:29 | PC.NURSE ---
Pt pulled out own IV due to My IV was done. Blood on floor, stool in depends. Pt changed/cleaned, dressing placed over IV site. Pt redirected to bed and dressed, placed in bed and given call light. Denies any requests at this time.
--- NOTE | 2021-03-23 21:18 | PC.NURSE ---
Pt to nurses station - yelling and demanding for her to be admitted due to she is unable to care for him. Pt is A&Ox3 and at door [address]. discussing w/ production material coordinator the POC. Pt is up for discharge, pt yells Find him a reason to get admitted. I cannot take care of him, he is always covered in shit. Hes covered in shit now. I cant work. I cant deal with this. Find a reason, I cannot take him home. production material coordinator discussing situation w/ Dr Medrano at this time. Pt remains at bedside. Pt cleaned of stool incontinence.
== END 2021-03-23 21:52 | disposition still patient (30) ==
PROVIDERS: Emergency Provider General Practice; PCP Internal Medicine
DX: J18.9 Pneumonia, unspecified organism (principal); E87.6 Hypokalemia; E83.42 Hypomagnesemia; F17.210 Nicotine dependence, cigarettes, uncomplicated; F32.9 Major depressive disorder, single episode, unspecified; K21.9 Gastro-esophageal reflux disease without esophagitis; I10 Essential (primary) hypertension
CPT/HCPCS: 36415; 51701; 70450; 71046; 80053; 80307; 81001; 82140; 83605; 83735; 84443; 85025; 85610; 85730; 87040; 93005; 96365; 96366; 96367; 96368; 96375; 99284; J0456; J0610; J0696; J3475; J3480